=== PATIENT | female | born 1980 | race Caucasian/White ===

== ENCOUNTER 2017-03-11 18:08 | Emergency (ER) | payer BC ==
[2017-03-11 18:28] VITALS: BP 135/82
--- NOTE | 2017-03-11 19:27 | UC ---
UC General HPI - HPI Summary HPI Summary: patient has had some pain int eh right trapezius and is having a hard time sleeping due to the pull in her neck. she is currently receiveing PT for neck muscle pain. - History of Current Complaint Chief Complaint: UCBackPain Stated Complaint: NECK PAIN Time Seen by Provider: 03/11/17 18:54 Hx Obtained From: Patient Hx Last Menstrual Period: 02/22/17 Onset/Duration: Sudden Onset, Lasting Weeks Timing: Constant Onset Severity: Severe Current Severity: Moderate - Allergy/Home Medications Allergies/Adverse Reactions: Allergies Allergy/AdvReac Type Severity Reaction Status Date / Time No Known Allergies Allergy Verified 03/11/17 18:27 PMH/Surg Hx/FS Hx/Imm Hx Previously Healthy: Yes - Surgical History Surgical History: None - Family History Known Family History: Negative: Cardiac Disease, Hypertension - Social History Alcohol Use: None Substance Use Type: None Smoking Status (MU): Never Smoked Tobacco Review of Systems Constitutional: Negative Skin: Negative Eyes: Negative ENT: Negative Respiratory: Negative Cardiovascular: Negative Gastrointestinal: Negative Genitourinary: Negative Motor: Negative Neurovascular: Negative Musculoskeletal: Decreased ROM, Myalgia Neurological: Negative Psychological: Negative All Other Systems Reviewed And Are Negative: Yes Physical Exam Triage Information Reviewed: Yes Appearance: Well-Appearing, Well-Nourished, Pain Distress Vital Signs: Initial Vital Signs Temp 98.6 F 03/11/17 18:21 Pulse 71 03/11/17 18:21 Resp 16 03/11/17 18:21 BP 135/82 03/11/17 18:21 Pulse Ox 100 03/11/17 18:21 Vital Signs Reviewed: Yes Eye Exam: Normal ENT Exam: Normal ENT: Positive: Hearing grossly normal, Pharynx normal, TMs normal Dental Exam: Normal Neck exam: Normal Neck: Positive: Supple, Nontender, No Lymphadenopathy Respiratory Exam: Normal Respiratory: Positive: Chest non-tender, Lungs clear, Normal breath sounds Cardiovascular Exam: Normal Cardiovascular: Positive: RRR, No Murmur, Pulses Normal Abdominal Exam: Normal Abdomen Description: Positive: Nontender, No Organomegaly, Soft Bowel Sounds: Positive: Present Musculoskeletal Exam: Normal Musculoskeletal: Positive: Strength Intact, No Edema, ROM Limited @ - in right lteral flexion Neurological Exam: Normal Neurological: Positive: Alert, Muscle Tone Normal Psychological Exam: Normal Skin Exam: Normal Course/Dx - Course Course Of Treatment: hx obtained, exam performed ,meds reviewed, treated for muscle spasm - Differential Dx - Multi-Symptom Provider Diagnoses: muscle spasm Discharge - Discharge Plan Condition: Stable Disposition: HOME Prescriptions: Cyclobenzaprine TAB* [Flexeril 10 MG TAB*] 10 mg PO BEDTIME #7 tab Patient Education Materials: Muscle Spasm (ED) Additional Instructions: 1. take the medication at night. 2 follow up with PCp if pain worsens
== END 2017-03-11 19:31 | disposition home or self-care (01) ==
LOC: UCCORT 18:08
DX: M62.830 Muscle spasm of back (principal)
CPT/HCPCS: 99202; G0463